=== PATIENT | female | born 1985 | race Asian ===

== ENCOUNTER 2018-08-15 02:21 | Emergency (ER) | payer BC ==
[2018-08-15 02:24] VITALS: BP 99/59; PULSE 63; TEMP 97.3; BMI 18.6
[2018-08-15] MEDS ORDERED: ONDANSETRON 4 MG/2 ML VIAL IVPUSH ONE (02:31)
[2018-08-15] MEDS ORDERED: FAMOTIDINE 20 MG/50 ML IVPB 20 MG/50 ML MG IVPB ONE ×2 (02:31→02:39)
[2018-08-15] MEDS ORDERED: ACETAMINOPHEN 1000 MG/100 ML VIAL (NON FORMULARY) IVPB ONE (02:31)
[2018-08-15] MEDS ORDERED: SODIUM CHLORIDE 0.9% 1000 ML INFUS.BAG IV ONE (02:31)
[2018-08-15] MEDS ORDERED: ACETAMINOPHEN INJECTION 100 ML IVPB ONE (02:39)
[2018-08-15] MEDS ORDERED: ONDANSETRON 4 MG/2 ML VIAL ONE (02:39)
--- NOTE | 2018-08-15 03:11 | PDOC ---
History of Present Illness - General Chief Complaint: Nausea/Vomiting Stated Complaint: N/V/D Time Seen by Provider: 08/15/18 02:24 - History of Present Illness Initial Comments: 08/15/18 04:51 33 years [place] past medical history presents to the emergency Department with three-day history of nausea vomiting and diarrhea. Patient symptoms started with intermittent abdominal discomfort followed by emesis the following day diarrhea today began to feel better had a large meal with friends this evening began to vomit again. No travel no sick contacts Abdominal pain is intermittent and seems to come and go diarrhea and vomiting also intermittent seem to come and go worse this evening. Past History - Past Medical History Allergies/Adverse Reactions: Allergies Allergy/AdvReac Type Severity Reaction Status Date / Time No Known Allergies Allergy Unverified 08/15/18 02:48 Home Medications: Ambulatory Orders Ondansetron [Zofran Odt -] 4 mg SL BID #14 od.tablet 08/15/18 COPD: No - Suicide/Smoking/Psychosocial Hx Smoking History: Never smoked Review of Systems - Review of Systems Comments:: 08/15/18 04:51 ROS: A complete review of 10 out of 10 review of systems is taken and is negative apart from what is previously mentioned below and in the HPI. *Physical Exam - Vital Signs Last Vital Signs Temp Pulse Resp BP Pulse Ox 97.3 F L 63 16 99/59 L 100 08/15/18 02:22 08/15/18 02:22 08/15/18 02:22 08/15/18 02:22 08/15/18 02:22 - Physical Exam Comments: 08/15/18 04:51 Vitals: Triage Vital signs reviewed General Appearance: no acute distress, well nourished well developed, Head: Atraumatic, Eyes: Pupils equal reactive round, extraocular movement intact Neck: Supple;No Nucal rigidity Chest Wall: Nontender Cardiac: Regular rate and rhythym, no murmurs, no rubs, no gallops, Lungs: Clear to auscultation bilateral, good air movement bilaterally, Abdomen: Soft, non distended, normal bowel sounds, non tender to palpation Extremities: Full range of motion to all extremities, no cyanosis, clubbing, or edema Skin: Warm and dry, no rashes or lesions, no rash, no petechiae Psych: normal mood, normal affect ED Treatment Course - LABORATORY CBC & Chemistry Diagram: 08/15/18 02:35 08/15/18 02:35 Medical Decision Making - Medical Decision Making 08/15/18 04:51 33 years old well-appearing no apparent distress no significant past medical history presents to the ED with 2 day history of nausea vomiting diarrhea. No red flags on patient's history No significant abdominal pain on examination. We'll treat with antiemetics check labs IV fluids hydrate observe and reassess Reevaluation 4:50 AM patient feels much better now tolerating fluids We'll discharge which short course of Zofran fluids for today slow progression to bland diet if no vomiting by tomorrow Findings, need for follow-up and strict return instructions discussed with patient. *DC/Admit/Observation/Transfer Diagnosis at time of Disposition: Gastroenteritis - Discharge Dispostion Disposition: HOME Condition at time of disposition: Stable Decision to Admit order: No - Prescriptions Prescriptions: Ondansetron [Zofran Odt -] 4 mg SL BID #14 od.tablet - Referrals Referrals: [facility] [place] [Provider Group] - Patient Instructions Printed Discharge Instructions: DI for Nausea -- Adult, DI for Vomiting -- Adult Additional Instructions: Take Zofran as prescribed. Drink plenty of fluids. No solid foods today. If no vomiting tomorrow morning you can slowly introduce solid foods such as bananas rice crackers interior diet. Return to ED for any returning severe abdominal pain fevers uncontrollable vomiting or for any concerns. Follow-up with her primary care provider this week. - Post Discharge Activity Forms/Work/School Notes: Back to Work
[2018-08-15 04:03] LABS: BASO % 0.2 % (0-2.0); EOS % 0.2 % (0-4.5); HEMATOCRIT 39.4 % (32.4-45.2); HEMOGLOBIN 13.2 GM/dL (10.7-15.3); LYMPH % 6.2 % (8-40); MCH 29.1 pg (25.7-33.7); MCHC 33.5 g/dl (32.0-36.0); MEAN CELL VOLUME 86.9 fl (80-96); MONO % 6.5 % (3.8-10.2); NEUT % 86.9 % (42.8-82.8); PLATELET COUNT 294 K/MM3 (134-434); RBC 4.53 M/mm3 (3.60-5.2); RDW 13.4 % (11.6-15.6); WHITE BLOOD COUNT 8.2 K/mm3 (4.0-10.0)
[2018-08-15 04:27] LABS: ALBUMIN 4.8 g/dl (3.4-5.0); ALK PHOS 53 U/L (45-117); ANION GAP 8 MMOL/L (8-16); BILIRUBIN,TOTAL 0.2 mg/dL (0.2-1); BLOOD UREA NITROGEN 13 mg/dL (7-18); CALCIUM 10.5 mg/dL (8.5-10.1); CHLORIDE 104 mmol/L (98-107); CO2 26 mmol/L (21-32); CREATININE 0.6 mg/dL (0.55-1.3); GLUCOSE,RANDOM 121 mg/dL (74-106); LIPASE 76 U/L (73-393); POTASSIUM 4.6 mmol/L (3.5-5.1); SGOT/AST 30 U/L (15-37); SGPT/ALT 34 U/L (13-61); SODIUM 138 mmol/L (136-145)
== END 2018-08-15 05:04 | disposition home or self-care (01) ==
LOC: FER 02:21
PROC: 3E0337Z Introduction of Electrolytic and Water Balance Substance into Peripheral Vein, Percutaneous Approach (ICD-10-PCS; principal; 2018-08-15)
PROC: 3E033NZ Introduction of Analgesics, Hypnotics, Sedatives into Peripheral Vein, Percutaneous Approach (ICD-10-PCS; 2018-08-15)
PROC: 3E033GC Introduction of Other Therapeutic Substance into Peripheral Vein, Percutaneous Approach (ICD-10-PCS; 2018-08-15)
DX: K52.9 Noninfective gastroenteritis and colitis, unspecified (principal)
CPT/HCPCS: 36415; 80053; 83690; 84703; 85025; 99283-25; J0131; J7030